=== PATIENT | male | born 1955 | race Caucasian/White ===

== ENCOUNTER 2016-07-17 20:22 | Inpatient (IN) | payer MEDICARE, BC, OTHER ==
[~2016-07-17] VITALS: Ht 182.9 cm; Wt 131.5 kg
--- NOTE | ~2016-07-17 | ECH ---
Transthoracic Echocardiography Report (TTE) Demographics Patient Name VINAY MONAE Date of Study 07/21/2016 Patient Number [id number] Visit Number [id number] Date of 1955 Room Number 308 Accession Number [id number] Gender Male Age 61 year(s) Referring Talisha Tolliver MD Global Account Director Physician Physician Interpreting King Shad Gandhi MD Manager Social Responsibility Physician Supervising Ordering Physician Tiki Arndt MD/VALERIY MOSQUEDA Nurse Stress Telescope Maintenance Conclusions Summary Limited exam for pericardial effusion and right heart function. The estimated left ventricular ejection fraction is 50% in underlying atrial fibrillation. Mildly dilated right ventricle with mildly reduced right ventricular function. Right ventricular wall 1.1cm, mild right ventricular hypertrophy. The right atrium is moderately dilated. Dilated IVC with poor inspiratory collapse consistent with elevated RA pressure. Mild tricuspid regurgitation by color Doppler. There is mild pulmonary hypertension. The pulmonary pressure (RVSP) is 39 mmHg. Small to moderate size global pericardial effusion. Procedure Type of Study TTE procedure:Echo Limited SF. Procedure Date Date: 07/21/2016 Start: 02:43 AM Technical Quality: Adequate visualization Indications:Pericardial effusion. Additional Indications:on vent Appropriate Use Criteria: 9 Height: 72 inches Weight: 275 pounds BSA: 2.44 m Rhythm: Atrial fibrillation HR: 125 bpm BP: 119/68 mmHg Allergies - No known allergies. M-Mode/2D Measurements Post Pericard Effusion: 1 cm IVC Inspiration: 3.4 cm RV Base: 4.6 cm RV Mid: 3.3 cm RV Length: 7.1 cm TAPSE: 1.4 cm TDI-S': 14 cm/s Doppler Measurements TR Velocity:2.46 m/s TR Gradient:24.21 mmHg Estimated RAP:15 mmHg Estimated PASP: 39.21 mmHg Estimated RVSP: 39 mmHg RA Area: 28.8 cm Findings Right Ventricle Mildly dilated right ventricle. Mildly reduced right ventricular function. Right ventricular wall 1.1cm, mild right ventricular hypertrophy. Right Atrium The right atrium is moderately dilated. Dilated IVC with poor inspiratory collapse consistent with elevated RA pressure. Tricuspid Valve Normal appearing tricuspid valve. Mild tricuspid regurgitation by color Doppler. There is mild pulmonary hypertension. The pulmonary pressure (RVSP) is 39 mmHg. Pericardial Effusion Small to moderate size global pericardial effusion. Respiratory variation noted. Contractility Score LV regional wall motion:(0-Non visualized 1-Normal 2-Hypokinesis 3-Akinesis 4-Dyskinesis 5-Aneurysm) Signature
--- NOTE | ~2016-07-17 | ECH ---
Transthoracic Echocardiography Report (TTE) Demographics Patient Name VINAY MONAE Date of Study 07/18/2016 Patient Number [id number] Visit Number [id number] Date of 1955 Room Number 308 Accession Number [id number] Gender Male Age 61 year(s) Referring Talisha Tolliver MD Finisher Hand Azeb Neal [facility] Physician Physician Jennifer Gao MD Architecture Internship Physician Abhi Supervising Ordering Physician King Shad Gandhi MD, MD/MLP Nurse Stress Waterproofer Conclusions Contractility Score Summary Normal Left Ventricular contractility was noted. Summary Technically adequate exam. The estimated left ventricular ejection fraction is 70-75%. Moderate to severe left ventricular hypertrophy. Normal right ventricle structure and function. Dilated IVC with poor inspiratory collapse consistent with elevated RA pressure. Mild tricuspid regurgitation by color Doppler. Estimated pulmonary pressures within normal range. Small to medium sized global pericardial effusion. Epicardial fat pad noted. Recommendation The patient will be given the results of this study by the physician who ordered the exam. Procedure Type of Study TTE procedure:Echo Complete SF. Procedure Date Date: 07/18/2016 Start: 09:02 AM Technical Quality: Adequate visualization Indications:Elevated Troponin, Abnormal ECG and Hypotension. Additional Indications:on ventilator Appropriate Use Criteria: 9 Height: 72 inches Weight: 275 pounds BSA: 2.44 m Rhythm: Sinus tachycardia HR: 100 bpm BP: 151/81 mmHg Allergies - No known allergies. M-Mode/2D Measurements LV Diastolic Dimension: 4.67 cm LV Systolic Dimension: 2.38 cm LV Septum Diastolic: 1.52 cm LV PW Diastolic: 1.69 cm AO Root Dimension: 3.19 cm Cardiac Output: 7.93 l/min LA Dimension: 3.9 cm Cardiac Index: 3.25 l/min*m RV Diastolic Dimension: 2.72 cm LA volume index: 24 ml/m Post Pericard Effusion: 1 cm LVOT: 2.4 cm IVC Inspiration: 2.54 cm LVOT VTI: 17.54 cm RV Base: 4.46 cm LV Stroke volume: 79.31 ml RV Mid: 3.16 cm LV Stroke volume index: 32.5 ml/m RV Length: 6.75 cm TAPSE: 1.87 cm Doppler Measurements AV Peak Velocity: 1.7 m/s MV Peak E-Wave: 1.07 m/s AV Peak Gradient: 11.56 mmHg MV Peak A-Wave: 0.84 m/s AV Mean Gradient: 6.72 mmHg MV E/A Ratio: 1.28 LVOT Peak Velocity: 1.44 m/s MV P1/2t: 66.7 msec AV Area (Continuity):4.15 cm MV Deceleration Time: 230 msec TR Velocity:2.2 m/s MV Area (PHT): 3.3 cm TR Gradient:19.36 mmHg PV Peak Velocity: 1.23 m/s Estimated RAP:15 mmHg PV Peak Gradient: 6.06 mmHg Estimated RVSP: 34 mmHg Estimated PASP: 34.36 mmHg RA Area: 16.93 cm Findings Left Ventricle The left ventricle is normal in size . Moderate to severe left ventricular hypertrophy. Diastolic assessment reveals normal relaxation. Right Ventricle Normal right ventricle structure and function. Left Atrium Normal left atrial size. Right Atrium Normal right atrial size. Dilated IVC with poor inspiratory collapse consistent with elevated RA pressure. Mitral Valve Normal mitral valve structure and function. Aortic Valve Normal aortic valve structure and function. Tricuspid Valve Normal tricuspid valve structure and function. Mild tricuspid regurgitation by color Doppler. Estimated pulmonary pressures within normal range. Pulmonic Valve Normal pulmonic valve structure and function. Pericardial Effusion Small to medium sized global pericardial effusion. Epicardial fat pad noted. Miscellaneous Visualized portions of the aortic root and ascending aorta appear normal in size. Pleural Effusion No evidence of pleural effusion. Contractility Score LV regional wall motion:(0-Non visualized 1-Normal 2-Hypokinesis 3-Akinesis 4-Dyskinesis 5-Aneurysm) Signature
--- NOTE | ~2016-07-17 | CATH ---
Cardiac Diagnostic Report Demographics Patient Name LETHA Lopez Gender Male Date of 1955 Age 61 year(s) Patient Number [id number] Date of Study 07/17/2016 Visit Number [id number] Room Number 308 Corporate ID Ht 182.88 cm Wt 124.74 kg Accession Number [id number] BSA 2.44 m Referring Primary Physician Physician Performing King Shad Gandhi MD Secondary Physician Physician Diagnostic King Shad Gandhi MD Assisting Physician Physician Interventional Physician Communications Advisor Physician Findings and Conclusions Diagnostic Findings and Conclusion 1. 2 Vessel nonobstructive CAD Diagnostic Recommendations 1. Transfer to ICU to stabilize 2. Risk factor modifications Procedure Description The patient was brought to the diagnostic cardiac catheterization laboratory in the fasting, non-sedated state. Informed consent was obtained in the written and verbal form after the risks and benefits were explained. The patient had no further questions and agreed to proceed. The planned puncture-incision site(s) were shaved and prepped with ChloraPrep and draped in the usual sterile manner. Conscious sedation, supplemental oxygen, and pain control medications were delivered by a registered nurse under physician guidance. Surface ECG rhythm, blood pressure measurement, and pulse oximetry were monitored throughout the procedure. Arterial access. The Right femoral access site was infiltrated with lidocaine. The right radial vessel was entered with the Seldinger technique. A 6F sheath was advanced into the vessel and used for catheter placement. Selective left coronary angiography. A JL4 catheter was advanced into the left coronary vessel ostium under Fluoroscopic guidance. Contrast was injected by hand. Images were obtained in multiple projections. Selective right coronary angiography. A FR4 catheter was advanced into the right coronary vessel ostium under fluoroscopic guidance. Contrast was injected by hand. Images were obtained in multiple projections. Left heart catheterization. A PIgtail catheter was advanced across the aortic valve to the left ventricle under fluoroscopic guidance. Resting hemodynamics were obtained. Hemostasis: The sheath(s) was sutured in place. A pressurized flush bag was connected to the side port of the sheath. The sheath(s) will be removed once the Physician desires. The patient was transferred to a regular nursing floor via cart accompanied by a nurse. The patient left the laboratory in stable condition. Diagnostic Cath Status: Emergency Procedure Procedure Type Diagnostic procedure:Angiography:, Coronary Angios w/[facility] Indications: Diabetes, Abnormal ECG and Hypertension. The procedure was explained in detail to the patient. Risks, complications and alternative treatments were reviewed. Written consent was obtained. Medications Reviewed with Patient prior to Procedure. Complications: No Complication. Angiographic Findings Dominance: Right Cardiac Arteries and Lesion Findings LMCA: Normal (0% Stenosis). LAD: Abnormal. Lesion on Mid LAD: 20% stenosis . LCx: Abnormal. Lesion on Dist CX: 30% stenosis . RCA: Normal (0% Stenosis). Coronary Tree Procedure Data Procedure Date Date: 07/17/2016Start: 09:12 PM Entry Locations - Percutaneous access was performed through the Right Femoral artery (Primary location). A 6 Fr sheath was inserted. Hemostasis was successfully obtained using a pressurized flush bag which was connected to the sheath and it was sutured in place . - Percutaneous access was performed through the Right Femoral vein. A 5 Fr sheath was inserted. Hemostasis was successfully obtained using a sterile dressing to secure the sheath in place. Closure Comments: IVF running in sheath. Procedure Medications Order and Administration + + + + + !Time !Medication !Dosage !Route ! + + + + + !07/17/2016 09:20 PM !Dopamine !10 mcg/kg/min !I.V. drip ! + + + + + !07/17/2016 09:26 PM !Sodium Bicarbonate (Bolus) !1 !I.V. ! + + + + + Devices Used - [facility] 6FR MULTIPACK CATHETERSwas used for:Coronary Angios. Contrast Material - Isovue 75471 ml Fluoroscopy Time: Diagnostic: 1:54 minutes. Total: 1:54 minutes. Fluoroscopy Dose: Diagnostic: 640 mGy. Total: 640 mGy. Estimated Blood Loss: 12 ml. Medical History Allergies - No known allergies. Risk Factors The patient risk factors include:treated hypertension, orally-treated diabetes mellitus and former tobacco use. Admission Data Admission Date: 07/17/2016 Admission Time: 09:03 PM Insurance Payors: Medicare. [place] LV function assessed as:Normal. Ejection Fraction - 07/17/2016 - Method: LV gram. EF%: 70. Hemodynamics Condition: Rest Estimated: Heart Rate: 49 bpm Pressures (mmHg) +-----+ + !Site !Pressure ! +-----+ + !LV !87/-4 ,3 ! +-----+ + !AO !90/45 (53) ! +-----+ + !LV !91/-3 ,16 ! +-----+ + Valve Gradients and Areas + +---------+---------+---------+ +---------+ + !Valve !Peak !Mean !Area !Index !Flow !Source ! + +---------+---------+---------+ +---------+ + !Aortic !0 !0 ! ! ! ! ! + +---------+---------+---------+ +---------+ + !Aortic !0 !0 ! ! ! ! ! + +---------+---------+---------+ +---------+ + Signatures
--- NOTE | 2016-07-18 07:27 | ER ---
ADMIT: 07/17/2016 RM/LOC: 308 [facility] MR#: [id number] [address] [facility] [address] [place] [id number] [address] [place] [address] Emergency Room Report SEX: M AGE: 61 : 1955 DATE: 07/17/2016 CHIEF COMPLAINT: Altered level of consciousness. HISTORY OF PRESENT ILLNESS: The patient is a 61-year-old male with schizophrenia, hypertension, type 2 diabetes, last seen in his normal baseline state on 09 of July. Family did a welfare check today and found him altered in bed, unable to respond. Paramedics were called, found the blood sugar greater than 500, sonorous deep respirations consistent with ketoacidosis. Random EKG was initiated and found to have hyperacute ST- elevated [place] inferior leads. The patient only complains of headache. Does have excoriation in the left side of his head consistent with possible trauma, though [facility] confirmed that [facility] has had excoriations above his left ear for 2 months. PAST MEDICAL HISTORY: ILLNESSES: Type 2 diabetes, hypertension, schizophrenia. OPERATIONS: Unknown. ALLERGIES: NONE. MEDICATIONS: Please see nurse's MAR. SOCIAL HISTORY: Smoker, occasional alcoholic beverage. No illicit drugs. FAMILY HISTORY: Noncontributory. REVIEW OF SYSTEMS: Unavailable due to altered level of consciousness. PHYSICAL EXAM: VITAL SIGNS: Temp 94.5, pulse 108, respirations 28, BP 43/34, SaO2 of 88% on 4 L. GENERAL: Marked distress, nontoxic, non-diaphoretic without jaundice or icterus. HEENT: Left ear, scalp excoriation and bleeding with dried blood. Left TM clear, canal though does have blood in the ear. NECK: The patient has no pain with movement of his neck or palpation. Good carotid upstroke and volume without bruit. CHEST: Breath sounds equal and diminished without rales, rhonchi, or wheeze. HEART: Tachycardic, regular without murmur, gallop, or edema. ABDOMEN: Obese, nontender, nondistended, without mass or megaly. Bowel sounds hypoactive. EXTREMITIES: No evidence of injury. NEURO: [place] coma Scale 10, will open his eyes, respond with slurred disoriented speech, able to move all extremities. MEDICAL DECISION MAKING: EKG on arrival confirms atrial fibrillation with acute ST elevated [place] in leads II, III and aVF. Reciprocal ST depression noted anteriorly. Chest x-ray, no acute findings. Glucose greater than 500. Remainder of lab pending. CT head shows no evidence of bleed. CT C-spine ADMIT: 07/17/2016 RM/LOC: 308 [facility] MR#: [id number] [address] [address] [address] [place] [address] Emergency Room Report SEX: M AGE: 61 : 1955 negative. Discussed case with Dr. Thurston prior to arrival, who agreed with mobilization of sleep lab technologist. Immediate transport to sleep lab technologist was delayed, pending confirmation and no cerebral bleed. Heparin IV push 5000 units, aspirin 325 rectal, no metoprolol was given. Due to patient's presentation, findings, and intervention, 90 minutes of critical care is warranted. DIAGNOSES: 1. Altered level of consciousness associated with hyperglycemia, probable hyperosmolar coma. 2. Acute inferior ST-elevated myocardial infarction. 3. Atrial fibrillation with rapid ventricular response. 4. Cardiogenic shock, possible septic shock. 5. Hypoxemia secondary to above. RECOMMENDATION: Emergent PCI by Dr. Thurston. ADMISSION/DISCHARGE CONDITION: Grave. The patient is a full code. Raheel Moy MD/ modl JOB #: [id number] CC: Abhi Gao MD, Attending Physician Abhi Gao MD, Family Physician RYAN Ratliff MD
--- NOTE | 2016-07-19 16:51 | CO ---
ADMIT: 07/17/2016 RM/LOC: 308 [facility] MR#: [id number] [address] [address] [address] [place] [address] Consultation SEX: M AGE: 61 : 1955 DATE OF CONSULTATION: 07/17/2016 ATTENDING PHYSICIAN: Abhi Gao CONSULTING PHYSICIAN: Clinton Woodall MD REASON FOR CONSULT: Medical management in the setting of DKA. This is a critically ill patient. HISTORY OF PRESENT ILLNESS: The patient is a 61-year-old gentleman with schizophrenia, hypertension, limited past medical history, who reported he has been found down. The last time family heard from him was on the 09 of July, a week ago. Police went in and checked, found him down at home. Sent him to the emergency room. Reportedly had question concerning for inferior VT. Went for a phlebotomist lab assistant. I discussed with Cardiology. It sounds like overall no acute coronary event found. The patient otherwise obtunded. He cannot provide any history whatsoever. Nobody else available at this time. Family is en route and live hours away. PAST MEDICAL HISTORY: 1. Hypertension. 2. Schizophrenic disorder. MEDICATIONS: According to what little paperwork we have available, it is: 1. Lisinopril. 2. Hydrochlorothiazide. 3. Risperidone. FAMILY HISTORY: Unobtainable by patient or family sources. SOCIAL HISTORY: It sounds like he lives alone. Unclear smoking status. Otherwise unobtainable. REVIEW OF SYSTEMS: Unobtainable due to obtundation. PHYSICAL EXAMINATION: VITAL SIGNS: Pulse is 132, blood pressure 110/56, temperature 92.4. He is saturating 95% on non-rebreather currently. HEENT: Normocephalic. Pupils are equal bilaterally. Less responsive than expected. Both are unresponsive, however. No icterus. Very dry mucous membranes. NECK: No lymphadenopathy. Soft, supple. Trachea midline. LUNGS: He has very diminished bilateral breath sounds bilaterally. Very weak breathing. Somewhat agonal almost. Otherwise, clear anteriorly superiorly. Symmetric thoracic excursion. HEART: Tachycardic. No murmurs, rubs, or gallops. ABDOMEN: Soft, nontender, and nondistended. Bowel sounds present. EXTREMITIES: No cyanosis, clubbing, or edema. MUSCULOSKELETAL: He does not move extremities due to obtundation. NEUROLOGICAL: No focal deficits noted. Equivocal Babinski bilaterally. ADMIT: 07/17/2016 RM/LOC: 308 [facility] MR#: [id number] [address] [address] [address] [place] [address] Consultation SEX: M AGE: 61 : 1955 Pupils as noted above. Did not test the gag reflex due to his non-rebreather in place at this time. Nonresponsive overall. Does not withdraw to deep stimuli. SKIN: He has a large left-sided facial preauricular rash roughly 16 x 8 cm with surrounding erythema and induration. Some granulation tissue at the base. Some sloughing of skin. Looks secondarily infected through a chronic rash. LABORATORY AND X-RAY DATA: His ABG is 6.87, pCO2 is 65, PO2 102, INR is 1.4, hemoglobin 11.3, white blood cell count 33.4, platelets 349, lactic acid 1.8. UDS, UA, BMP are all pending at this time. Chest x-ray reviewed. Some very low lung volumes. It is a portable film. Borderline cardiomegaly. No overt pulmonary edema. CT scan of his head is overall negative at this time. Cervical spine CT report shows negative motion degraded. Procalcitonin is 5.47. ASSESSMENT: 1. Severe diabetic ketoacidosis. 2. Respiratory failure. 3. Hypoxic and hypercarbic. 4. Unresponsive. 5. Hyponatremia, reportedly preliminary sodium was 119, likely pseudohyponatremia. 6. Hypothermia, temperature is 92.4 at this time. 7. Schizophrenia. 8. Shock. 9. Hypotension. 10.Possible infectious sepsis. ADMIT: 07/17/2016 RM/LOC: 308 [facility] MR#: [id number] [address] [address] [address] [place] [address] Consultation SEX: M AGE: 61 : 1955 PLAN: At this point in time, large volume fluid resuscitation. Clearly needs intubation for stabilization given his severity of illness at this time in presentation. We will get him intubated here. Continue IV fluid resuscitation. He was given some amp of bicarb now given the severity of his metabolic acidosis as well as with concurrent respiratory acidosis. We will start him on some antibiotic, Zosyn. It looks like he has early cellulitis on his face. We will check a TSH given his hypothermia, although it just maybe because he was found down. We will get him re-warmed. Check an ABG and close followup after his intubation. Check UDS. Put him on DKA protocol once we can repeat sugar after his initial 10 units IV. Watch his sodium closely with his volume resuscitation. The patient extremely critically ill. Family is reportedly now en route at this time, otherwise not reachable. Clinton Woodall MD/ gilbert JOB #: [id number] CC: Abhi Gao, Attending Physician Abhi Gao, Family Physician
--- NOTE | 2016-07-20 09:31 | HP ---
ADMIT: 07/17/2016 RM/LOC: 308 [facility] MR#: [id number] 26[address] [facility] [address] [place] [address] [address] [place] [address] History and Physical SEX: M AGE: 61 : 1955 DATE OF SERVICE: CHIEF COMPLAINT: Presumed ST-segment elevated myocardial infarction and somnolence. HISTORY OF PRESENT ILLNESS: The patient is a 61-year-old male, who is schizophrenic and apparently lives by himself. There was very minimal history to be gathered due to the patient's current medical condition. What we could find is that he had not been heard from for several days. The police went to check on him at the request of the family, who does not live in town, and when they found him he was somnolent. An ambulance was called and during that time, he had an EKG, which demonstrated what appeared to be an inferior ST- segment elevated myocardial infarction. He was initially taken to the CT scanner with his somnolence to make sure there was no evidence of intracranial injury, and once this was completed and no acute findings were noted, he was then brought to the equipment operator/laborer/supervisor. I spoke with his father who states that he does have a previous history of diabetes and hypertension as well as schizophrenia, but is unaware of any other medical conditions or surgical conditions. He also had no allergies, and the only medicine he knows that he takes his Glucophage. ALLERGIES: NONE. MEDICATIONS: Glucophage. FAMILY HISTORY: Unobtainable at this time. SOCIAL HISTORY: The patient has a previous history of smoking, but apparently quit recently. We are unsure if he consumes any alcohol. He is schizophrenic and lives apparently by himself. REVIEW OF SYSTEMS: Unobtainable. PHYSICAL EXAMINATION: VITAL SIGNS: Blood pressure was in the 80s/40s, heart rate was in the 110s, respirations 24, and temperature was afebrile. The patient being somnolent with decreased breath sounds throughout. SKIN: [place], warm and dry. EYES: Sclerae clear. No xanthelasmas. ENT: Oral mucosa is pink and moist. No jugular venous distention or carotid bruits. CHEST: Respirations are even and unlabored. Lungs are clear to auscultation. HEART: Regular rate and rhythm. Normal S1, S2. No murmurs, rubs or gallops. ABDOMEN: Soft and nontender. MUSCULOSKELETAL: Gait is normal. ADMIT: 07/17/2016 RM/LOC: 308 [facility] MR#: [id number] [address] [address] [address] [place] [address] History and Physical SEX: M AGE: 61 : 1955 EXTREMITIES: Peripheral pulses palpable. No clubbing, cyanosis or edema. PSYCHIATRIC: Alert and oriented. Mood and affect are appropriate. ASSESSMENT: 1. Presumed ST-segment elevated myocardial infarction. 2. Possible diabetic ketoacidosis. 3. Hypotension. PLAN: The patient will be taken to the equipment operator/laborer/supervisor emergently for further evaluation. We will also do resuscitative measures with fluids and dopamine at the moment. He will need further treatment for his diabetes once we have him more stable. Shad Thurston MD/ gilbert JOB #: [id number] CC: Abhi Gao, Attending Physician Abhi Gao, Family Physician
--- NOTE | 2016-07-23 09:52 | CO ---
ADMIT: 07/17/2016 RM/LOC: 308 [facility] MR#: [id number] [address] [id number] VINAY ROBIN [address] [place] [address] Consultation SEX: M AGE: 61 : 1955 DATE OF CONSULTATION: 07/21/2016 ATTENDING PHYSICIAN: Clinton Woodall CONSULTING PHYSICIAN: Abhi Fairbanks MD REASON FOR CONSULTATION: Hypotension, respiratory failure, inability to oxygenate. HISTORY OF PRESENT ILLNESS: Vinay Robin is a 61-year-old male, admitted on 07/17/2016. He has a fairly complicated hospital course thus far. He has a history of schizophrenia and there was limited history on admission. His family had last heard from him on July 09 and then apparently, the police went to check in on and then he was found down at home. He was found to be in DKA, also thought to be in urosepsis and was intubated in the emergency room. He did ultimately go for cardiac catheterization. Apparently that was normal. He did ultimate go for cardiac catheterization on the day of admission, that showed 2-vessel nonobstructive coronary artery disease. Echocardiogram the following day revealed an ejection fraction of 70% with left ventricular hypertrophy. His RV was normal, but his right atrial pressures were estimated to be slightly increased. He did have a [id number] global pericardial effusion that was thought to be insignificant at that time. According to the chart, it does not sound like his mental status has ever improved since admission. There have been discussions with family with regard to code status and he was made a DNR/DNI at one point. This evening, he did extubate himself, and he did get reintubated because of the self-extubation. I was called because he is profoundly hypoxemic with saturations in the high 80s on an FiO2 of 100% with 10 of PEEP. He was also markedly hypotensive. He also went into atrial fibrillation with rapid ventricular response earlier this evening and has been markedly hypotensive with MAPs in the 40s and 50s upon my initial arrival. PAST MEDICAL HISTORY: All taken from the chart (hypertension, schizophrenia). FAMILY HISTORY: Unknown. SOCIAL HISTORY: Unclear smoking status and he lives alone. CURRENT MEDICATIONS: 1. Precedex. 2. Fentanyl. 3. Risperdal. 4. Pepcid. 5. Reglan. 6. Tylenol. 7. Vancomycin. 8. Insulin. REVIEW OF SYSTEMS: Unable to be obtained as the patient is currently ADMIT: 07/17/2016 RM/LOC: 308 [facility] MR#: [id number] [address] [place] [id number] [place] [address] [place] [address] Consultation SEX: M AGE: 61 : 1955 intubated and sedated. PHYSICAL EXAMINATION: VITAL SIGNS: Blood pressures were 70s/50s. Heart rate extremely variable from the 110s to the 150s. Respiratory rate was 30, and the patient is afebrile. GENERAL: The patient is intubated and some respiratory distress. HEENT: Pupils are reactive. NECK: Supple. HEART: Tachycardic, irregular. LUNGS: Clear. ABDOMEN: Protuberant, but soft. EXTREMITIES: Trace edema. SKIN: No obvious rashes or lesions. MUSCULOSKELETAL: Deferred. NEUROLOGIC: Notable for being sedated on the ventilator. LABORATORY DATA: PH 7.2, pCO2 is 45, PO2 of 60. This was on 100%. White count 11, hemoglobin 9, hematocrit 27, platelets are 169. Sodium 144, potassium 3.1, chloride 112, CO2 is 20, BUN is 73, creatinine is 2.4. Blood sugars are under much better control. IMAGING: Chest x-ray, not terribly impressive. Bibasilar atelectasis. Cardiomegaly. Tubes and lines in good position. IMPRESSION: 1. Hypoxemic respiratory failure (profoundly hypoxemic). 2. Diabetic ketoacidosis, improved. 3. Atrial fibrillation with rapid ventricular response. 4. Staph aureus bacteremia, currently on vancomycin. 5. Urosepsis. 6. Moderate pericardial effusion per echocardiogram dated 07/18/2016. 7. Metabolic acidosis. 8. Chronic kidney disease versus acute kidney injury. I have no data on his baseline laboratory. 9. Hypotension. 10.Encephalopathy. 11.Schizophrenia. PLAN/RECOMMENDATIONS: At this point, we will go ahead and make some changes to the ventilator. I will switch him to pressure control. We will increase his PEEP a bit, try to maintain his sats greater than 90%. I am going to ADMIT: 07/17/2016 RM/LOC: 308 [facility] MR#: [id number] [address] [place] [id number] VINAY ROBIN [address] [place] [address] Consultation SEX: M AGE: 61 : 1955 switch him from Precedex over to propofol. I think he needs better sedation. He was on vasopressin, I am going to switch that over to Levophed. I am going to bolus, given the bolus of the amio at this time. We will continue him on the drip as well. He was profoundly hypoxemic. I would like to check a CT angiogram, but unfortunately that is not possible. I am going to order lower extremity Dopplers, but in the interim, I going to check. I am going to start him on a heparin drip for presumed pulmonary embolism. I have a stat echo ordered since the initial changes in the Levophed or doing nothing for his blood pressure. I think we need to rule out tamponade and that will be done shortly. Also check a renal ultrasound for the acute kidney injury. We will continue to follow. Further care will be dictated by his hospital course and we will continue to follow with you. Abhi Fairbanks MD/ gilbert JOB #: [id number] CC: Clinton Woodall, Attending Physician Clinton Woodall, Family Physician
--- NOTE | 2016-07-27 10:57 | DS ---
ADMIT: 07/17/2016 RM/LOC: 308 [facility] MR#: [id number] [address] [place] [id number] VINAY MONAE [address] [place] [address] Discharge Summary SEX: M AGE: 61 : 1955 ADMISSION DATE: 07/17/2016 DISCHARGE DATE: 07/21/2016 CONSULTATIONS: 1. Cardiology. 2. Pulmonology. FINAL DIAGNOSES: 1. Acute gram-positive cocci MSSA (methicillin-susceptible Staphylococcus aureus) septic shock. 2. Acute hypoxic respiratory failure. 3. DKA (diabetic ketoacidosis). 4. Acute kidney injury, prerenal. 5. Delirium. 6. Metabolic encephalopathy. 7. Severe schizophrenia. 8. Elevated troponin without acute coronary event. PROCEDURES: He underwent left heart cath at admission, arterial line placement, intubation. Please see chart for full details. REASON FOR ADMISSION: The patient is a 61-year-old gentleman with severe schizophrenia who was found down at home. Brought to the emergency room. [place] to have a STEMI. Brought to the laboratory tech. Essentially normal. Brought to the ICU critically ill. HOSPITAL COURSE: The patient was in the ICU during course of hospitalization. Severely ill on pressors, up to 4 pressors at one point. Had some slow and steady improvement. From a mental status standpoint, did not make much meaningful recovery. Family was very involved in course of his care. The ADMIT: 07/17/2016 RM/LOC: 308 [facility] MR#: [id number] [address] [id number] [place] VINAY Lopez [facility] [place] [address] Discharge Summary SEX: M AGE: 61 : 1955 patient ultimately able to be weaned down to only 1 pressor. His respiratory status required intubation essentially once admitted to the ICU. He had DKA treated with an insulin drip, large volume fluid resuscitation. He was making some slow steady improvement although family was considering compassionate extubation. He ultimately self-extubated at one point over night, night, the . Subsequently reintubated. Clinically was worsened. Required more pressor support, more ventilatory support. Discussions were had with parents who had actually come to the decision of a compassionate extubation prior to his even worsening the night before. Please see chart letter of theirs for details. Ultimately, patient was made comfortable and compassionately extubated with family at bedside. He ultimately on the evening of the , Sunday. Please see chart for full details. Clinton Woodall MD/ carolyn JOB #: [id number] CC: Clinton Woodall MD, Attending Physician Clinton Woodall MD, Family Physician
== END 2016-07-21 23:13 | disposition expired | DRG 871 ==
LOC: ER 20:22 → 3ICU 21:03 → WOR 21:03 → 3ICU 07-21 23:13
PROVIDERS: ADMIT Internal Medicine
PROC: 4A023N7 Measurement of Cardiac Sampling and Pressure, Left Heart, Percutaneous Approach (ICD-10-PCS; principal; 2016-07-17)
PROC: B2111ZZ Fluoroscopy of Multiple Coronary Arteries using Low Osmolar Contrast (ICD-10-PCS; principal; 2016-07-17)
PROC: 5A1945Z Respiratory Ventilation, 24-96 Consecutive Hours (ICD-10-PCS; 2016-07-17)
PROC: 0BH17EZ Insertion of Endotracheal Airway into Trachea, Via Natural or Artificial Opening (ICD-10-PCS; 2016-07-17)
PROC: 02HV33Z Insertion of Infusion Device into Superior Vena Cava, Percutaneous Approach (ICD-10-PCS; 2016-07-18)
PROC: 03HY32Z Insertion of Monitoring Device into Upper Artery, Percutaneous Approach (ICD-10-PCS; 2016-07-19)
PROC: 3E0G76Z Introduction of Nutritional Substance into Upper GI, Via Natural or Artificial Opening (ICD-10-PCS; 2016-07-19)
PROC: 0BH17EZ Insertion of Endotracheal Airway into Trachea, Via Natural or Artificial Opening (ICD-10-PCS; 2016-07-20)
PROC: 5A1935Z Respiratory Ventilation, Less than 24 Consecutive Hours (ICD-10-PCS; 2016-07-20)
DX: A41.01 Sepsis due to Methicillin susceptible Staphylococcus aureus (principal); R65.21 Severe sepsis with septic shock; J96.01 Acute respiratory failure with hypoxia; J96.92 Respiratory failure, unspecified with hypercapnia; R57.0 Cardiogenic shock; E13.10 Other specified diabetes mellitus with ketoacidosis without coma; G93.41 Metabolic encephalopathy; E87.4 Mixed disorder of acid-base balance; N17.9 Acute kidney failure, unspecified; I24.9 Acute ischemic heart disease, unspecified; E87.1 Hypo-osmolality and hyponatremia; L03.211 Cellulitis of face; Z51.5 Encounter for palliative care; I25.10 Atherosclerotic heart disease of native coronary artery without angina pectoris; E87.6 Hypokalemia; F20.9 Schizophrenia, unspecified; I10 Essential (primary) hypertension; S00.01XA Abrasion of scalp, initial encounter; X58.XXXA Exposure to other specified factors, initial encounter; I48.91 Unspecified atrial fibrillation; R09.02 Hypoxemia; T68.XXXA Hypothermia, initial encounter; Z79.84 Long term (current) use of oral hypoglycemic drugs; Z87.891 Personal history of nicotine dependence; Z66 Do not resuscitate